=== PATIENT | female | born 1935 | race Caucasian/White ===

== ENCOUNTER 2018-05-10 11:18 | Observation (INO) | payer OTHER, MEDICARE ==
--- OUTSIDE RECORDS SUMMARY | 2018-05-10 11:20 | XMS REPORT ---
:1935 Author Organization eClinicalWorks Care Team Providers Name Role Phone Paulina Zimmer Provider Role Unavailable Allergies No Known Allergies Problems Problem Type Condition Code Onset Dates Condition Status Problem Hyperthyroidism E05.90 Active Problem Hx of breast cancer Z85.3 Active Problem HTN (hypertension) I10 Active Problem Essential hypertension I10 Active Problem Vitamin D deficiency E55.9 Active Problem History of hyperthyroidism Z86.39 Active Problem Seasonal allergic rhinitis due to J30.1 Active pollen Medications No Known Medications Results No Known Results Summary Purpose eClinicalWorks Submission
--- OUTSIDE RECORDS SUMMARY | 2018-05-10 11:20 | XMS REPORT ---
:1935 Author Organization eClinicalWorks Care Team Providers Name Role Phone Paulina Zimmer Provider Role Unavailable Allergies No Known Allergies Problems Problem Type Condition Code Onset Dates Condition Status Problem Vitamin D deficiency E55.9 Active Problem Seasonal allergic rhinitis due to J30.1 Active pollen Problem Essential hypertension I10 Active Problem Change in bowel habit R19.4 Active Problem C. difficile diarrhea A04.72 Active Problem Abnormal weight loss R63.4 Active Problem Hx of breast cancer Z85.3 Active Problem History of hyperthyroidism Z86.39 Active Problem HTN (hypertension) I10 Active Problem Hyperthyroidism E05.90 Active Medications No Known Medications Results No Known Results Summary Purpose eClinicalWorks Submission
--- OUTSIDE RECORDS SUMMARY | 2018-05-10 11:20 | XMS REPORT ---
[...] rhinitis due to J30.1 Active pollen Medications Medication Code Code Instructions Start End Status Dosage System Date Date Vancomycin HCl [facility] 19860616999 125 MG Orally March 31, April 10, Active 1 capsule every 6 hrs 2017 2017 Results No Known Results Summary Purpose eClinicalWorks Submission
--- OUTSIDE RECORDS SUMMARY | 2018-05-10 11:21 | XMS REPORT ---
:1935 Author Organization eClinicalWorks Care Team Providers Name Role Phone Paulina Zimmer Provider Role Unavailable Allergies, Adverse Reactions, Alerts Substance Reaction Event Type ANGIOTENSION RENIN AGL Info Not Available Drug Allergy Sulfa rash Drug Allergy Problems Problem Type Condition Code Onset Dates [...] (hypertension) I10 Active Problem Hyperthyroidism E05.90 Active Assessment Hematuria, unspecified R31.9 Active Assessment Abnormal weight loss R63.4 Active Assessment Change in bowel habit R19.4 Active Assessment Positive fecal occult blood test R19.5 Active Assessment Diarrhea, unspecified type R19.7 Active Medications Medication Code Code Instructions Start End Status Dosage System Date Date Tasiazaki [facility] 08533220715 50 MG Orally Active 1 tablet Once a day Vitamin D3 [facility] 03018792413 5000 UNIT Orally Active 1 capsule Ultra Strength Once a day Centrum Silver [facility] 49945993404 - Orally Active not defined Results No Known Results Summary Purpose eClinicalWorks Submission
--- OUTSIDE RECORDS SUMMARY | 2018-05-10 11:21 | XMS REPORT ---
:1935 Author Organization eClinicalWorks Care Team Providers Name Role Phone Paulina Zimmer Provider Role Unavailable Allergies, Adverse Reactions, Alerts Substance Reaction Event Type ANGIOTENSION RENIN GAL Info Not Available Drug Allergy Sulfa rash [...] I10 Active Problem Hyperthyroidism E05.90 Active Assessment Abnormal weight loss R63.4 Active Assessment Change in bowel habit R19.4 Active Assessment C. difficile diarrhea A04.72 Active Medications Medication Code Code Instructions Start End Status Dosage System Date Date Vitamin D3 [facility] 04322572184 5000 UNIT Orally Active 1 capsule Ultra Strength Once a day Cozaar [facility] 69136873224 50 MG Orally Active 1 tablet Once a day Centrum Silver [facility] 31795368480 - Orally Active not defined Results No Known Results Summary Purpose eClinicalWorks Submission
[2018-05-10 14:18] LABS: Potassium 3.3 mEq/L (3.6-5.0)
[2018-05-10 14:19] LABS: Absolute Lymphocytes (CBC) 1.4 K/uL (0.7-4.9); Absolute Monocytes 0.6 K/uL (0.1-1.3); Absolute Neutrophil 4.6 K/uL (1.8-8.0); Basophils % 1.2 % (0-1.3); Eosinophils % 0.5 % (0-4.4); Hematocrit 37.2 % (36.0-45.0); MCH 29.6 pg (27.0-35.0); MCV 90.8 fL (80-100); MPV 11.3 fL (7.6-11.3); Monocytes % 8.6 % (3.3-12.3); RBC Red Blood Cell Count 4.09 M/uL (3.86-4.86)
[2018-05-10 14:24] LABS: Bilirubin Direct 0.1 mg/dL (0-0.2); Bilirubin Total 0.7 mg/dL (0.3-1.2); Magnesium 1.8 mg/dL (1.8-2.5); Protein, Total 6.9 g/dL (6.0-8.3)
[2018-05-10 14:27] LABS: CKMB Creatine Kinase MB 2.9 ng/ml (0.3-4.0)
[2018-05-10 14:50] LABS: Protime INR 1.15
[2018-05-10 15:14] LABS: Urine Blood 1+ (NEG); Urine Glucose NEGATIVE (NEG); Urine Protein 2+ (NEG); Urine Specific Gravity 1.025 (1.005-1.030); Urine pH 6.5 (5.0-7.0)
--- NOTE | 2018-05-10 15:16 | RAD REPORT ---
EXAM DESCRIPTION: RAD - Chest Single View - 05/10/2018 2:20 pm CLINICAL HISTORY: Cough, swelling, shortness of breath COMPARISON: None. TECHNIQUE: AP portable chest image was obtained 1406 hours . FINDINGS: Interstitial markings are prominent throughout the lung scott. This is probably a baselin e fibrosis. As the initial examination superimposed interstitial edema or infiltrate cannot be exclud ed. Patient has small to moderate left pleural effusion with probable atelectasis and/ or infiltrate. Minimal right pleural effusion with atelectasis seen. Upper lobe vasculature within normal limits. H eart is not enlarged. Trachea is midline. No pneumothorax. No acute bone finding. Patient has promine nt degenerative tendon or joint calcifications at each shoulder. No acute aortic findings suspected. IMPRESSION: Left greater than right pleural effusion with lung base infiltrate and/ or atelectasis. Bilateral interstitial lung disease is present. This could mask a component of interstitial edema or infiltrate as a baseline study.
[2018-05-10] MEDS ORDERED: POTASSIUM CL SA 10 MEQ TAB PO ONE (15:26)
[2018-05-10] MEDS ORDERED: CEFTRIAXONE/SWI 1gm 1 GM/10 ML SYR ONE (15:26)
--- NOTE | 2018-05-10 15:30 | RAD REPORT ---
EXAM DESCRIPTION: CT - Chest For Pe Angio - 05/10/2018 3:13 pm CLINICAL HISTORY: Cough, shortness of breath, prior hysterectomy, prior left mastectomy COMPARISON: Chest films same date TECHNIQUE: Dynamically enhanced 3 mm thick images of the chest were obtained during administration o f approximately 150mL Isovue 370 IV contrast. Coronal and oblique reconstruction images were generate d and reviewed. Exam utilizes a protocol to evaluate the pulmonary arterial tree. All CT scans are performed using dose optimization technique as appropriate and may include automated exposure control or mA/KV adjustment according to patient size. FINDINGS: No pulmonary emboli are identified. Aortic assessment is limited due to the PE protocol. No aortic aneurysm or displaced calcification. A cute aortic finding is not suspected. No pericardial thickening or effusion. Patient has large bilateral pleural effusions. There is partial atelectasis of each lower lobe. Patie nt has interstitial opacification that is probably chronic interstitial lung disease. Focal parenchym al opacification in the anterior left lung field at the aortic arch level is probably scarring from r adiation therapy. Bilateral breast implants are in place. No infiltrate or acute lung parenchymal process. No endobronchial lesion. No pneumothorax or pleural based mass. No mediastinal or hilar suspicious masses. No chest wall masses or abnormal axillary lymphadenopathy. IMPRESSION: No pulmonary emboli identified. Large bilateral pleural effusions with partial atelectasis of each lower lobe. Chronic interstitial lung disease is evident. An acute pneumonia is not confirmed.
[2018-05-10 15:44] LABS: Blood Morphology Comment NOT SEEN (NOT SEEN); Platelet Estimate ADEQ; Urine White Blood Cell Casts OK
--- NOTE | 2018-05-10 15:56 | RAD REPORT ---
EXAM DESCRIPTION: VAS - Extrem Venous W Compress David - 05/10/2018 3:38 pm CLINICAL HISTORY: Leg pain and swelling COMPARISON: None. TECHNIQUE: Real-time sonographic evaluation of the bilateral lower extremity deep venous systems was performed. FINDINGS: Normal compressibility, flow augmentation, phasic flow and spontaneous flow are identified in the left and right lower extremity deep venous systems. No intraluminal filling defects seen. IMPRESSION: No DVT in either lower extremity.
--- NOTE | 2018-05-10 16:04 | ER ---
Nurse's Notes [facility] Name: Alecia Dorantes Age: 83 yrs Sex: Female : 1935 Arrival Date: 05/10/2018 Time: 11:22 Bed 28 Private MD: Paulina Zimmer Diagnosis: Pleural effusion in conditions classified elsewhere-large bilateral ;Dyspnea;Hypokalemia;Cystitis Presentation: 05/10 11:30 Presenting complaint: Patient states: Bilateral lower leg swelling, nonproductive hb cough, and SOB x 5 days. SOB is worse when supine. Denies fever. Transition of care: patient was not received from another setting of care. Onset of symptoms was May 05, 2018. Risk Assessment: Do you want to hurt yourself or someone else? Patient reports no desire to harm self or others. Initial Sepsis Screen: Does the patient meet any 2 criteria? No. Patient's initial sepsis screen is negative. Does the patient have a suspected source of infection? No. Patient's initial sepsis screen is negative. Care prior to arrival: None. 11:30 Method Of Arrival: Ambulatory 11:30 Acuity: BARBARA 3 hb Triage Assessment: 16:41 General: Appears uncomfortable, well groomed, Behavior is calm, cooperative, mb3 appropriate for age. Respiratory: Reports shortness of breath Onset: The symptoms/episode began/occurred started 5 days ago, the patient has severe shortness of breath. Historical: - Allergies: 11:34 Sulfa (Sulfonamide Antibiotics) (Hives); hb - Home Meds: 11:34 lisinopril 20 mg Oral tab 1 tab once daily [Active]; hb - PMHx: 11:34 Hypertension; Breast CA; hb - PSHx: 11:34 Hysterectomy; mastectomy - left; hb - Immunization history:: Adult Immunizations up to date. - Social history:: Smoking status: Patient/guardian denies using tobacco. - Ebola Screening: : No symptoms or risks identified at this time. Screenin:19 Abuse screen: Denies threats or abuse. Denies injuries from another. Nutritional sg screening: No deficits noted. Tuberculosis screening: No symptoms or risk factors identified. Never had TB. Fall Risk None identified. Assessment: 13:16 General: Appears in no apparent distress. comfortable, slender, well groomed, well sg developed, well nourished, Behavior is calm, cooperative, appropriate for age. Pain: Denies pain. Neuro: Level of Consciousness is awake, alert, obeys commands, Oriented to person, place, time, situation, Charge Preparation Technician are equal bilaterally Moves all extremities. Gait is steady, Speech is normal, Facial symmetry appears normal, Pupils are PERRLA. Cardiovascular: Heart tones S1 S2 present Capillary refill is brisk in bilateral fingers Patient's skin is warm and dry. Chest pain is denied. Cardiovascular: Denies chest pain, fatigue, nausea, palpitations, shortness of breath, Rhythm is sinus tachycardia. Cardiovascular: Pulses are palpable in right radial artery, right posterior tibial artery, left radial artery and left posterior tibial artery Edema is 1+ to left ankle, left foot, left toes, right ankle, right foot and right toes. Respiratory: Airway is patent Respiratory effort is even, unlabored, Breath sounds with crackles in left posterior lower lobe and right posterior middle lobe. GI: No signs and/or symptoms were reported involving the gastrointestinal system. : No signs and/or symptoms were reported regarding the genitourinary system. EENT: No signs and/or symptoms were reported regarding the EENT system. Derm: Skin is pink, warm \T\ dry. Musculoskeletal: Circulation, motion, and sensation intact. Range of motion: intact in all extremities, Swelling present in right caraballo, dorsum of right foot, left caraballo and dorsum of left foot. Vital Signs: 11:31 BP 123 / 99; Pulse 102; Resp 18; Temp 97.1; Pulse Ox 98% on R/A; Weight 58.97 kg; hb Height 5 ft. 7 in. (170.18 cm); Pain 0/10; 13:15 BP 152 / 90; Pulse 108; Resp 18 S; Pulse Ox 97% on R/A; Pain 0/10; sg 16:22 BP 161 / 80; Pulse 114; Resp 22; Pulse Ox 98% on R/A; mb3 11:31 Body Mass Index 20.36 (58.97 kg, 170.18 cm) hb ED Course: 11:22 Patient arrived in ED. sb2 11:22 Paulina Zimmer MD is Private Physician. sb2 11:31 Triage completed. hb 11:34 Arm band placed on right wrist. hb 13:08 Daniel Dennison, RN is Primary Nurse. sg 13:13 Galindo Staley MD is Attending Physician. emily 13:15 EKG done. Patient maintains SpO2 saturation greater than 95% on room air. sg 13:45 Initial lab(s) drawn, by me, sent to lab. First set of blood cultures drawn by me. sg Inserted saline lock: 20 gauge in right forearm, using aseptic technique. Blood collected. 13:45 Missed attempt(s): 22 gauge in right forearm. Bleeding controlled, band aid applied, sg catheter tip intact. 14:19 X-ray completed. Portable x-ray completed in exam room. Patient tolerated procedure ml well. 14:20 XRAY Chest (1 view) In Process Unspecified. EDMS 15:[address] nj 15:11 CT completed. Patient tolerated procedure well. Patient moved back from CT. tx 15:13 CT Chest For PE Angio In Process Unspecified. EDMS 15:17 Patient taken to ultrasound. via wheelchair. hr 15:21 US Extremity Venous W Compression David In Process Unspecified. EDMS 15:21 Edward Paula, HOLLAND is Primary Nurse. [facility] 15:52 Ultrasound completed. Patient tolerated well. Note: . Patient moved back from hr ultrasound. 16:02 Genny Mayer MD is Hospitalizing Provider. [facility] 16:03 Hospitalizing Provider role handed off by Genny Mayer MD [facility] 16:03 Camille Jenkins MD is Hospitalizing Provider. [facility] 16:22 Patient has correct armband on for positive identification. Bed in low position. Call mb3 light in reach. Side rails up X 1. radiation monitor on. Pulse ox on. NIBP on. 16:42 No provider procedures requiring assistance completed. Patient admitted, IV remains in mb3 place. Administered Medications: 16:00 Drug: Potassium Chloride 20 mEq Route: PO; mb3 16:45 Follow up: Response: No adverse reaction mb3 16:00 Drug: Rocephin - (cefTRIAXone) 1 grams Route: IVPB; Infused Over: 30 mins; Site: right mb3 forearm; 16:44 Follow up: Response: No adverse reaction; IV Status: Completed infusion; IV Intake: [id number] 16:40 Drug: Lasix 40 mg Route: IVP; Site: right forearm; mb3 16:44 Follow up: Response: No adverse reaction mb3 Intake: 16:44 IV: 50ml; Total: 50ml. mb3 Outcome: 16:04 Decision to Hospitalize by Provider. emily 16:42 Admitted to Tele accompanied by tech, via wheelchair, room 410, with chart, Report mb3 called to Shilpi RN \T\163 16:42 Condition: stable 16:42 Instructed on the need for admit. 16:59 Patient left the ED. mb3 Signatures: Dispatcher [employer] EDMS Daniel Dennison, RN RN Galindo Lebron MD MD cha Rod, Haley hr Lopez, Melissa ml Baxter, Heather, RN Brijesh Wilson Sheri sb2 Edward Paula RN RN mb3
--- NOTE | 2018-05-10 16:05 | EDPHYS ---
Physician Documentation [facility] Name: Alecia Dorantes Age: 83 yrs Sex: Female : 1935 Arrival Date: 05/10/2018 Time: 11:22 Bed 28 Private MD: Paulina Zimmer ED Physician Galindo Staley HPI: 05/10 13:48 This 83 yrs old Female presents to ER via Ambulatory with complaints of emily Breathing Difficulty. 13:48 The patient has shortness of breath at rest, with light activity. Onset: The emily symptoms/episode began/occurred 3 day(s) ago. Duration: The symptoms are continuous, and are steadily getting worse. The patient's shortness of breath is aggravated by coughing. Associated signs and symptoms: Pertinent positives: non-productive cough. Severity of symptoms: At their worst the symptoms were moderate in the emergency department the symptoms have improved mildly. The patient has not experienced similar symptoms in the past. Historical: - Allergies: 11:34 Sulfa (Sulfonamide Antibiotics) (Hives); hb - Home Meds: 11:34 lisinopril 20 mg Oral tab 1 tab once daily [Active]; hb - PMHx: 11:34 Hypertension; Breast CA; hb - PSHx: 11:34 Hysterectomy; mastectomy - left; hb - Immunization history:: Adult Immunizations up to date. - Social history:: Smoking status: Patient/guardian denies using tobacco. - Ebola Screening: : No symptoms or risks identified at this time. ROS: 13:50 Constitutional: Negative for fever, chills, and weight loss, Eyes: Negative for injury, emily pain, redness, and discharge, ENT: Negative for injury, pain, and discharge, Neck: Negative for injury, pain, and swelling, Cardiovascular: Negative for chest pain, palpitations, and edema, Abdomen/GI: Negative for abdominal pain, nausea, vomiting, diarrhea, and constipation, Back: Negative for injury and pain, : Negative for injury, bleeding, discharge, and swelling, Skin: Negative for injury, rash, and discoloration, Neuro: Negative for headache, weakness, numbness, tingling, and seizure, Psych: Negative for depression, anxiety, suicide ideation, homicidal ideation, and hallucinations, Allergy/Immunology: Negative for hives, rash, and allergies, Endocrine: Negative for neck swelling, polydipsia, polyuria, polyphagia, and marked weight changes, Hematologic/Lymphatic: Negative for swollen nodes, abnormal bleeding, and unusual bruising. 13:50 Respiratory: Positive for orthopnea, shortness of breath, at rest. 13:50 MS/extremity: Positive for swelling. Exam: 13:50 Constitutional: This is a well developed, well nourished patient who is awake, alert, emily and in no acute distress. Head/Face: Normocephalic, atraumatic. Eyes: Pupils equal round and reactive to light, extra-ocular motions intact. Lids and lashes normal. Conjunctiva and sclera are non-icteric and not injected. Cornea within normal limits. Periorbital areas with no swelling, redness, or edema. ENT: Nares patent. No nasal discharge, no septal abnormalities noted. Tympanic membranes are normal and external auditory canals are clear. Oropharynx with no redness, swelling, or masses, exudates, or evidence of obstruction, uvula midline. Mucous membranes moist. Neck: Trachea midline, no thyromegaly or masses palpated, and no cervical lymphadenopathy. Supple, full range of motion without nuchal rigidity, or vertebral point tenderness. No Meningismus. Chest/axilla: Normal chest wall appearance and motion. Nontender with no deformity. No lesions are appreciated. Cardiovascular: Regular rate and rhythm with a normal S1 and S2. No gallops, murmurs, or rubs. Normal PMI, no JVD. No pulse deficits. Respiratory: Lungs have equal breath sounds bilaterally, clear to auscultation and percussion. No rales, rhonchi or wheezes noted. No increased work of breathing, no retractions or nasal flaring. Abdomen/GI: Soft, non-tender, with normal bowel sounds. No distension or tympany. No guarding or rebound. No evidence of tenderness throughout. Back: No spinal tenderness. No costovertebral tenderness. Full range of motion. Female : Normal external genitalia. Skin: Warm, dry with normal turgor. Normal color with no rashes, no lesions, and no evidence of cellulitis. Neuro: Awake and alert, GCS 15, oriented to person, place, time, and situation. Cranial nerves II-XII grossly intact. Motor strength 5/5 in all extremities. Sensory grossly intact. Cerebellar exam normal. Normal gait. Psych: Awake, alert, with orientation to person, place and time. Behavior, mood, and affect are within normal limits. 13:50 Musculoskeletal/extremity: Extremities: noted in the right leg and left leg: swelling. Vital Signs: 11:31 BP 123 / 99; Pulse 102; Resp 18; Temp 97.1; Pulse Ox 98% on R/A; Weight 58.97 kg; hb Height 5 ft. 7 in. (170.18 cm); Pain 0/10; 13:15 BP 152 / 90; Pulse 108; Resp 18 S; Pulse Ox 97% on R/A; Pain 0/10; sg 16:22 BP 161 / 80; Pulse 114; Resp 22; Pulse Ox 98% on R/A; mb3 11:31 Body Mass Index 20.36 (58.97 kg, 170.18 cm) hb MDM: 13:13 Patient medically screened. [facility] 13:51 Data reviewed: vital signs, nurses notes, lab test result(s), EKG, radiologic studies, emily plain films. 05/10 13:47 Order name: Basic Metabolic Panel [facility] 05/10 13:47 Order name: BNP; Complete Time: 15:47 [facility] 05/10 13:47 Order name: CBC with Diff; Complete Time: 15:47 [facility] 05/10 13:47 Order name: Ckmb; Complete Time: 14:57 [facility] 05/10 13:47 Order name: CPK; Complete Time: 14:57 [facility] 05/10 13:47 Order name: LFT's; Complete Time: 14:57 [facility] 05/10 13:47 Order name: Magnesium; Complete Time: 14:57 [facility] 05/10 13:47 Order name: PT-INR; Complete Time: 14:57 [facility] 05/10 13:47 Order name: Ptt, Activated; Complete Time: 14:57 [facility] 05/10 13:47 Order name: Troponin (emerg Dept Use Only); Complete Time: 14:57 [facility] 05/10 13:47 Order name: Lipase; Complete Time: 14:57 [facility] 05/10 13:47 Order name: Blood Culture Adult (2) [facility] 05/10 13:47 Order name: D-Dimer; Complete Time: 14:57 [facility] 05/10 13:48 Order name: Basic Metabolic Panel; Complete Time: 14:57 [facility] 05/10 13:47 Order name: XRAY Chest (1 view); Complete Time: 15:47 [facility] 05/10 13:47 Order name: EKG; Complete Time: 13:48 [facility] 05/10 13:47 Order name: Cardiac monitoring; Complete Time: 13:52 [facility] 05/10 13:47 Order name: EKG - Nurse/Tech; Complete Time: 13:52 [facility] 05/10 13:47 Order name: IV Saline Lock; Complete Time: 13:52 [facility] 05/10 13:47 Order name: Echo w/ Doppler [facility] 05/10 14:23 Order name: CBC Smear Scan; Complete Time: 15:47 [facility] 05/10 14:59 Order name: US Extremity Venous W Compression David; Complete Time: 16:00 [facility] 05/10 14:59 Order name: CT Chest For PE Angio; Complete Time: 15:47 [facility] 05/10 15:01 Order name: Urine Dipstick--Ancillary (enter results); Complete Time: 15:47 05/10 15:09 Order name: Urine Culture [facility] 05/10 16:07 Order name: CONS Physician Consult [facility] 05/10 16:08 Order name: CONS Physician Consult [facility] 05/10 13:47 Order name: Labs collected and sent; Complete Time: 13:52 [facility] 05/10 13:47 Order name: O2 Per Protocol; Complete Time: 13:52 [facility] 05/10 13:47 Order name: O2 Sat Monitoring; Complete Time: 13:52 [facility] Administered Medications: 16:00 Drug: Potassium Chloride 20 mEq Route: PO; mb3 16:45 Follow up: Response: No adverse reaction mb3 16:00 Drug: Rocephin - (cefTRIAXone) 1 grams Route: IVPB; Infused Over: 30 mins; Site: right mb3 forearm; 16:44 Follow up: Response: No adverse reaction; IV Status: Completed infusion; IV Intake: [id number] 16:40 Drug: Lasix 40 mg Route: IVP; Site: right forearm; mb3 16:44 Follow up: Response: No adverse reaction mb3 Disposition: 05/10/18 16:04 Hospitalization ordered by Camille Jenkins for Inpatient Admission. Preliminary diagnosis are Pleural effusion in conditions classified elsewhere - large bilateral , Dyspnea, Hypokalemia, Cystitis. - Bed requested for Telemetry/MedSurg (Inpatient). - Status is Inpatient Admission. mb3 - Condition is Fair. - Problem is new. - Symptoms have improved. UTI on Admission? Yes Signatures: Dispatcher [employer] EDMS Galindo Staley MD MD cha Smirch, Shelby RN RN Elena Carrion, HOLLAND LINO Edward Paula RN RN mb3 Corrections: (The following items were deleted from the chart) 16:21 16:04 Hospitalization Ordered by Camille Jenkins MD for Inpatient Admission. Preliminary ss diagnosis is Pleural effusion in conditions classified elsewhere - large bilateral ; Dyspnea; Hypokalemia; Cystitis. Bed requested for Telemetry/MedSurg (Inpatient). Status is Inpatient Admission. Condition is Fair. Problem is new. Symptoms have improved. UTI on Admission? Yes. [facility] 16:59 16:21 05/10/2018 16:04 Hospitalization Ordered by Camille Jenkins MD for Inpatient mb3 Admission. Preliminary diagnosis is Pleural effusion in conditions classified elsewhere - large bilateral ; Dyspnea; Hypokalemia; Cystitis. Bed requested for Telemetry/MedSurg (Inpatient). Status is Inpatient Admission. Condition is Fair. Problem is new. Symptoms have improved. UTI on Admission? Yes. ss
--- NOTE | 2018-05-10 16:08 | EKG ---
Test Date: 2018-05-10 Test Time: 13:35:23 Rotary Cutter Feeder: HAYLEY MEASUREMENT RESULTS: Intervals: Rate: 106 VA: 146 QRSD: 108 QT: 358 QTc: 475 [place]: P: 68 VA: 146 QRS: 59 T: 150 INTERPRETIVE STATEMENTS: Sinus tachycardia with frequent premature ventricular complexes Nonspecific T wave abnormality Abnormal ECG No previous ECG available for comparison Electronically Signed On 05-10-18 16:07:51 CDT by Js Ramirez
[2018-05-10] MEDS ORDERED: FUROSEMIDE 40 MG/4 ML VIAL ONE (16:30)
[2018-05-10] MEDS ORDERED: ALBUTEROL 2.5 MG/3 ML NEB SOL NEB PRN (16:42)
[2018-05-10] MEDS ORDERED: IPRATROPIUM BROM 0.5MG/2.5ML NEB PRN (16:42)
[2018-05-10] MEDS ORDERED: ONDANSETRON 4 MG/2 ML VIAL IV PRN (16:42)
[2018-05-10] MEDS ORDERED: ACETAMINOPHEN 500 MG TAB PO PRN (16:42)
[2018-05-10] MEDS ORDERED: ENOXAPARIN 40 MG/0.4 ML SQ SCH (17:00)
[2018-05-10] MEDS ORDERED: FUROSEMIDE 20 MG/ 2ML VIAL IV SCH (17:00)
--- NOTE | 2018-05-10 17:47 | P.HP ---
Certification for Inpatient Patient admitted to: Inpatient With expected LOS: >2 Midnights Patient will require the following post-hospital care: None Practitioner: I am a practitioner with admitting privileges, knowledge of patient current condition, hospital course, and medical plan of care. Services: Services provided to patient in accordance with Admission requirements found in Title 42 Section 412.3 of the Code of Federal Regulations <Johan Fonseca - Last Filed: 05/10/18 17:42> Patient History Date of Service: 05/10/18 Primary Care Provider: Dr. Paulina Zimmer Reason for admission: Shortness of breath History of Present Illness: This is an 83-year-old female patient who was presented to the ED for having shortness of breath for the last several days. Patient stated that is gotten to the point now where she cannot lay flat any longer. Denies fevers. Has had a dry nonproductive cough for several weeks. Denies recent chest pain. Only notable history is hypertension which she is compliant with her medication. History of breast cancer in the past with a mastectomy about 20 years ago. Remains in remission. During breast cancer treatment therapy patient was known to have a pleural effusion that needed pleurocentesis in the past. Upon further workup in the emergency room patient was found to have bilateral large pleural effusions of unknown origin. Patient remains mildly tachycardic. Currently is not requiring oxygen supplementation and is hemodynamically stable. Home medications list reviewed: Yes - Past Medical/Surgical History Has patient received pneumonia vaccine in the past: Yes Diabetic: No -: High blood pressure -: Hysterectomy - Family History Family History: Reviewed- Non-Contributory - Social History Smoking Status: Never smoker Smoking therapy provided: No Alcohol use: No CD- Drugs: No Caffeine use: Yes Place of Residence: Home <Johan Fonseca - Last Filed: 05/10/18 17:42> Date of Service: 05/11/18 <Camille Jenkins - Last Filed: 05/11/18 16:08> Allergies Sulfa (Sulfonamide Antibiotics) Allergy (Verified 05/10/18 16:37) Itching Home Medications: Aspirin [Aspirin EC 81 MG] 81 mg PO DAILY #90 tablet. 05/11/18 Carvedilol [Coreg] 3.125 mg PO BID #60 tab 05/11/18 Furosemide [Lasix] 40 mg PO DAILY #30 tab 05/11/18 Losartan Potassium [Cozaar*] 25 mg PO DAILY #30 tablet 05/11/18 Review of Systems General: Unremarkable Eyes: Unremarkable ENT: Unremarkable Respiratory: Cough, Dry, Shortness of Breath, SOB with Excertion, Other ( Orthopnea) Cardiovascular: Orthopnea Gastrointestinal: Unremarkable Genitourinary: Unremarkable Musculoskeletal: Unremarkable Integumentary: Unremarkable Neurological: Unremarkable Lymphatics: Unremarkable <Johan Fonseca - Last Filed: 05/10/18 17:42> Physical Examination - Vital Signs Temperature: 98.4 F Blood Pressure: 144/70 Pulse: 107 Respirations: 18 Pulse Ox (%): 100 - Physical Exam General: Alert, In no apparent distress, Oriented x3, Cooperative HEENT: Normocephalic, PERRLA, Mucous membr. moist/pink Neck: Supple, 2+ carotid pulse no bruit, JVD not distended, No Thyromegaly Respiratory: Diminished (Lower lobes) Cardiovascular: No edema, Normal pulses, Regular rate/rhythm, Normal S1 S2, No gallops, No rubs, No murmurs Capillary refill: <2 Seconds Gastrointestinal: Normal bowel sounds, Hypoactive, Soft and benign, Non- distended, No tenderness Musculoskeletal: No clubbing, No swelling, No contractures, No erythema, No tenderness, No warmth Integumentary: No rashes, No breakdown, No significant lesion, No tenderness/ swelling, No erythema, No warmth, No cyanosis Neurological: Normal gait, Normal speech, Normal strength at 5/5 x4 extr, Normal tone, Sensation intact, Cranial nerves 3-12 intact, Normal reflexes 2+, Normal affect - Studies Laboratory Data (last 24 hrs) 05/10/18 13:45: PT 13.6 H, INR 1.15, APTT 26.1 05/10/18 13:45: WBC 6.7, Hgb 12.1, Hct 37.2, Plt Count 190 05/10/18 13:45: B-Natriuretic Peptide 1232 H 05/10/18 13:45: Sodium 134 L, Potassium 3.3 L, BUN 13, Creatinine 0.65, Glucose 114, Magnesium 1.8, Total Bilirubin 0.7, AST 36, ALT 51, Alkaline Phosphatase 74 , Lipase 22 <Johan Fonseca - Last Filed: 05/10/18 17:42> Assessment and Plan - Problems (Diagnosis) (1) Pleural effusion Status: Acute (2) Congestive heart failure Status: Suspected Qualifiers: Heart failure type: systolic Heart failure chronicity: acute Qualified Code(s): I50.21 - Acute systolic (congestive) heart failure (3) Tachycardia Status: Acute (4) Shortness of breath Status: Acute (5) Hypertension Status: Chronic Qualifiers: Hypertension type: essential hypertension Qualified Code(s): I10 - Essential (primary) hypertension - Plan 1. Patient will be on continuous pulse ox and have vitals monitored throughout her stay 2. Cardiology will be consulted and echocardiogram will be completed to further assess this patient has congestive heart failure which is contributing to pleural effusions 3. Pulmonology will be consulted for the bilateral pleural effusions to assess whether or not a pleurocentesis is indicated or diurese for now 4. We will continue blood pressure medicine and adjust as needed Discharge Plan: Home Plan to discharge in: Greater than 2 days - Advance Directives Does patient have a Living Will: Yes Does patient have a Durable POA for Healthcare: Yes - Code Status/Comfort Care Code Status Assessed: Yes Code Status: Full Code <Johan Fonseca - Last Filed: 05/10/18 17:42> - Plan Patient seen and examined. Agree with A&P. <Camille Jenkins - Last Filed: 05/11/18 16:08>
--- NOTE | 2018-05-10 18:47 | ECHO ---
HEIGHT: 5 ft 5 in WEIGHT: 120 lb 0 oz DATE OF STUDY: 05/10/[address]: Galindo Staley MD 2-DIMENSIONAL: YES M.MODE: YES DOPPLER: YES COLOR FLOW: YES TDS: YES PORTABLE: NO DEFINITY: NO BUBBLE STUDY: NO DIAGNOSIS: SHORTNESS OF BREATH CARDIAC HISTORY: CATHERIZATION: NO SURGERY: NO PROSTHETIC VALVE: NO PACEMAKER: NO MEASUREMENTS (cm) DIASTOLIC (NORMALS) SYSTOLIC (NORMALS) IVSd 0.9 (0.6-1.2) LA Diam 3.5 (1.9-4.0) LVEF 37% LVIDd 4.8 (3.5-5.7) LVIDs 4.0 (2.0-3.5) %FS 18% LVPWd 0.9 (0.6-1.2) Ao Diam 2.4 (2.0-3.7) 2 DIMENSIONAL ASSESSMENT: RIGHT ATRIUM: DILATED LEFT ATRIUM: DILATED RIGHT VENTRICLE: NORMAL LEFT VENTRICLE: NORMAL TRICUSPID VALVE: NORMAL MITRAL VALVE: NORMAL PULMONIC VALVE: NORMAL AORTIC VALVE: NORMAL PERICARDIAL EFFUSION: NONE AORTIC ROOT: NORMAL LEFT VENTRICULAR WALL MOTION: NORMAL DOPPLER/COLOR FLOW: MILD MITRAL REGURGITATION COMMENTS: DEPRESSED LEFT VENTRICULAR EJECTION FRACTION. DILATED LEFT ATRIUM AND RIGHT ATRIUM. MILD MITRAL REGURGITATION. TECHNOLOGIST: MAVIS GARCIA
[2018-05-11 04:05] LABS: Absolute Lymphocytes (CBC) 1.5 K/uL (0.7-4.9); Absolute Monocytes 0.7 K/uL (0.1-1.3); Absolute Neutrophil 4.1 K/uL (1.8-8.0); Basophils % 1.2 % (0-1.3); Eosinophils % 1.5 % (0-4.4); Hematocrit 37.4 % (36.0-45.0); Lymphocytes % 22.8 % (15.3-44.8); Monocytes % 10.6 % (3.3-12.3); RBC Red Blood Cell Count 4.16 M/uL (3.86-4.86)
[2018-05-11 05:00] LABS: Potassium 3.5 mEq/L (3.6-5.0); Thyroid Stimulating Hormone 4.15 uIU/mL (0.34-5.60)
--- NOTE | 2018-05-11 07:39 | CON ---
Date of Consultation: 05/11/2018 The patient was admitted to Dr. Canchola on 05/10/2018. I saw the patient 05/11/2018. Reason For Consultation: New onset congestive heart failure. History Of Present Illness: Mrs. Dorantes is an 83-year-old woman who has no significant past cardiac history. She has a history of hypertension, had chemotherapy and lots of radiation therapy for enoc st cancer approximately 20 years ago. Came in with shortness of breath, was found on chest x-ray to have bilateral pleural effusion and congestive heart failure. Echocardiogram which was done yesterda y showed an ejection fraction of 37%. Denied PND, orthopnea. Has had pedal edema. Denied chest puja n. Denied palpitation or syncope. Denied any fever or chills. Allergies: INCLUDE SULFA. Medications: At home include losartan. Review of Systems: Negative. Social History: Negative. Family History: Negative. Physical Examination: General: Mrs. Dorantes is an 83, very alert and oriented, seem to be very aware of her issues. No ac [place] distress. Vital Signs: She was in a sinus rhythm, afebrile. HEENT: Negative. Neck: Supple without any lymphadenopathy, JVD, or thyromegaly, or bruit. Chest: Clear to auscultation and percussion today. Cardiac: Revealed a regular rhythm and rate with aortic sclerosis. No murmur, gallops or rubs. Abdomen: Benign. Extremities: Revealed no edema today. Diagnostic Data: Chest x-ray shows CHF with pleural effusion bilaterally. EKG shows sinus rhythm. Her D-dimer was [address] angiogram for pulmonary embolus. Her BNP was 1232. Her crea tinine is 0.65. Impression And Plan: 1.Acute systolic congestive heart failure. 2.Hypertension. 3.History of breast cancer status post chemotherapy and radiation therapy 20 years ago. 4.Elevated D-dimer and BNP secondary to congestive heart failure. Mrs. Dorantes is feeling great. She has diuresed significantly. She has no more edema, no more rales . I will feel comfortable with her going home. I think we need to continue the losartan, we need to start carvedilol, and keep on Lasix 40 mg daily as well as, I will watch her sodium intake at home a nd keep her sodium intake 3-5 g a day. She needs to watch her weight daily. From my standpoint, she can go home as mentioned earlier with losartan, carvedilol, Lasix and I will be happy to see her in the office in the next 2 weeks. I will make an arrangement for her to have an outpatient Lexiscan. JELENA/ROSMERY Voice ID: [id number] Report ID: [id number]
[2018-05-11 08:02] VITALS: BP 128/63; TEMP 97.6
[2018-05-11] MEDS ORDERED: CEFTRIAXONE/SWI 1gm 1 GM/10 ML SYR IVP SCH (09:00)
[2018-05-11] MEDS ORDERED: LOSARTAN POTASSIUM 50 MG TABLET PO SCH (09:00)
[2018-05-11] MEDS ORDERED: POTASSIUM CL SA 10 MEQ TAB PO ONE (09:00)
[2018-05-11] MEDS ORDERED: FUROSEMIDE 20 MG/ 2ML VIAL IV SCH (09:00)
--- NOTE | 2018-05-11 09:19 | RAD REPORT ---
EXAM DESCRIPTION: Sanket Lindsey And Sammy (2 Views)05/11/2018 8:25 am CLINICAL HISTORY: Cough COMPARISON: May 10 2018 FINDINGS: The pleural effusions appear mildly diminished when compared to the prior exam. Bibasilar atelectasis is seen. Mild interstitial lung opacities have partially resolved. The heart is normal size IMPRESSION: Mild decrease in the size of the pleural effusions is suspected. Partial resolution in bilateral interstitial lung opacities which probably represent interstitial pul monary edema
[2018-05-11 11:25] VITALS: O2SAT 98
--- NOTE | 2018-05-11 14:19 | P.DS ---
Admission Date: 05/10/18 Discharge Date: 05/11/18 Primary Care Provider: Dr. Paulina Zimmer Disposition: ROUTINE DISCHARGE Discharge Condition: GOOD Reason for Admission: Shortness of breath Consultations: Cardiology-Dr. Pringle Procedures: CT scan: Bilateral pleural effusions noted. Echocardiogram: Ejection fraction 37%. Venous Doppler: No DVT noted. - Problems (1) UTI (urinary tract infection) Status: Suspected Qualifiers: Urinary tract infection type: site unspecified Hematuria presence: without hematuria Qualified Code(s): N39.0 - Urinary tract infection, site not specified (2) Pleural effusion Onset Date: 05/11/18 Status: Acute (3) Shortness of breath Onset Date: 05/11/18 Status: Acute (4) Tachycardia Onset Date: 05/11/18 Status: Acute (5) Hypertension Onset Date: 05/11/18 Status: Chronic Qualifiers: Hypertension type: essential hypertension Qualified Code(s): I10 - Essential (primary) hypertension (6) Congestive heart failure Onset Date: 05/11/18 Status: Acute Qualifiers: Heart failure type: systolic Heart failure chronicity: acute Qualified Code(s): I50.21 - Acute systolic (congestive) heart failure (7) Hypokalemia Status: Acute (8) Hypomagnesemia Status: Acute Brief History of Present Illness: 83-year-old female present emergency room with shortness of breath, tachycardia and edema to the lower extremities. Patient was evaluated the emergency room. CT scan showed bilateral pleural effusions. No pneumonia noted. Patient was admitted for diuresis. Cardiology consulted. Hospital Course: Patient presented with shortness of breath. She was found to have bilateral pleural effusions. Venous Doppler of the lower extremity showed no DVT. Patient was evaluated by cardiology. ECHO showed systolic CHF with EF of 37%. Patient was diuresed during her stay. At discharge the edema resolved to the lower extremities. She was without any significant shortness of breath or tachycardia. At discharge patient will continue with a 1500 cc per day fluid restriction and low-salt diet. Patient will be started on Lasix 40 mg daily. New medication carvedilol 3.25 mg 1 pill twice daily also has been added. She will continue with losartan at a reduced dose of 25 mg daily. Medications can be adjusted by her PCP or cardiology. Patient is to monitor her weight daily. If her weight increases by more than 5 lb she is to contact her PCP or cardiology for further recommendation. CHF education will be provided. Recommendation is for the patient follow up with cardiology in 1-2 weeks to monitor progress. Cardiology will set up outpatient cardiac stress tests in the next 2-4 weeks. Patient has hypertension. Medications have been adjusted. She will continue with losartan at a reduced dose of 25 mg daily. Carvedilol 3.125 mg 1 pill twice daily has been added. Recommendation is to maintain blood pressures less 150/80. Further adjustment can be done by her PCP or cardiology. Patient may continue with aspirin 81 mg daily. Recommendation is to recheck lab-BMP, CBC and x-ray in 2-4 weeks to monitor her progress. She may have to limit her activities. Prior to discharge. Urine culture was growing Gram negative rods. Patient without any significant symptoms. This is likely asymptomatic. This can be followed up as an outpatient. Patient did not require any oxygen at discharge. This can be monitored closely by her PCP or cardiology. Vital Signs/Physical Exam: Temp Pulse Resp BP Pulse Ox 97.6 F 96 H 18 128/63 98 05/11/18 08:00 05/11/18 09:18 05/11/18 08:00 05/11/18 09:18 05/11/18 08:00 General: Alert, In no apparent distress, Oriented x3, Cooperative HEENT: Atraumatic, Mucous membr. moist/pink Neck: Supple Respiratory: Diminished (Slightly diminished to the bases. Improved aeration bilateral) Cardiovascular: Normal pulses, Regular rate/rhythm Gastrointestinal: Normal bowel sounds, Soft and benign, Non-distended, No tenderness, No masses, No rebound, No guarding Musculoskeletal: No contractures, No erythema, No tenderness, No warmth Integumentary: No tenderness/swelling, No erythema, No warmth, No cyanosis Neurological: Normal speech, Normal strength at 5/5 x4 extr, Normal tone, Normal affect Laboratory Data at Discharge: WBC 6.5 K/uL (4.3-10.9) 05/11/18 03:37 Hgb 12.5 g/dL (12.0-15.0) 05/11/18 03:37 Hct 37.4 % (36.0-45.0) 05/11/18 03:37 Plt Count 171 K/uL (152-406) 05/11/18 03:37 PT 13.6 SECONDS (9.5-12.5) H 05/10/18 13:45 INR 1.15 05/10/18 13:45 APTT 26.1 SECONDS (24.3-36.9) 05/10/18 13:45 Sodium 136 mEq/L (135-145) 05/11/18 03:37 Potassium 3.5 mEq/L (3.6-5.0) L 05/11/18 03:37 BUN 13 mg/dL (6-20) 05/11/18 03:37 Creatinine 0.87 mg/dL (0.44-1.00) 05/11/18 03:37 Glucose 112 mg/dL (65-120) 05/11/18 03:37 Magnesium 1.7 mg/dL (1.8-2.5) L 05/11/18 03:37 Total Bilirubin 0.7 mg/dL (0.3-1.2) 05/10/18 13:45 AST 36 IU/L (10-42) 05/10/18 13:45 ALT 51 IU/L (10-60) 05/10/18 13:45 Alkaline Phosphatase 74 IU/L (42-121) 05/10/18 13:45 Troponin I 0.03 ng/mL (<0.03) 05/10/18 20:27 B-Natriuretic Peptide 1568 pg/ml (<=100) H 05/11/18 03:37 Lipase 22 U/L (22-51) 05/10/18 13:45 Home Medications: Aspirin [Aspirin EC 81 MG] 81 mg PO DAILY #90 tablet. 05/11/18 Carvedilol [Coreg] 3.125 mg PO BID #60 tab 05/11/18 Furosemide [Lasix] 40 mg PO DAILY #30 tab 05/11/18 Losartan Potassium [Cozaar*] 25 mg PO DAILY #30 tablet 05/11/18 New Medications: Aspirin [Aspirin EC 81 MG] 81 mg PO DAILY #90 tablet. Carvedilol [Coreg] 3.125 mg PO BID #60 tab Furosemide [Lasix] 40 mg PO DAILY #30 tab Losartan Potassium [Cozaar*] 25 mg PO DAILY #30 tablet Patient Discharge Instructions: 1. Patient will need to follow up with her PCP in 1-2 weeks to follow u pthis hospitalization. 2. Patient presented with shortness of breath. She was found to have bilateral pleural effusions. ECHO showed systolic CHF with EF of 37%. Patient evaluated by Cardiology. Patient did well with diuresis. At discharge patient will continue with a 1500 cc per day fluid restriction and low-salt diet. Patient will be started on Lasix 40 mg daily. New medication carvedilol 3.25 mg 1 pill twice daily also has been added. She will continue with losartan at a reduced dose of 25 mg daily. Patient is to monitor her weight daily. If her weight increases by more than 5 lb she is to contact her PCP or cardiology for further recommendation. CHF education will be provided. Recommendation is for the patient follow up with cardiology in 1-2 weeks to monitor progress. Cardiology will set up outpatient cardiac stress tests in the next 2-4 weeks. 3. Patient has hypertension. Medications have been adjusted. She will continue with losartan at a reduced dose of 25 mg daily. Carvedilol 3.125 mg 1 pill twice daily has been added. Recommendation is to maintain blood pressures less 150/80. Further adjustment can be done by her PCP or cardiology. 4. Patient may continue with aspirin 81 mg daily. 5. Recommendation is to recheck lab-BMP, CBC and x-ray in 2-4 weeks to monitor her progress. 6. She may have to limit her activities. Diet: AHA Activity: Fall precautions Followup: Peewee Pringle MD [ACTIVE - CAN ADMIT] - (Follow up with Dr. Pringle in 2 weeks. Please call office to schedule appointment. ) Paulina Zimmer DO [Primary Care Provider] - 1-2 Weeks (Follow up with Dr. Zimmer, PCP in one to two weeks. Please call office to schedule appointment. ) Time spent managing pt's care (in minutes): 55
== END 2018-05-11 10:57 | disposition home or self-care (01) ==
LOC: ER 11:18 → INTOOBSV 16:05 → ERHOLD 16:05 → 4TH 16:47
PROVIDERS: ADMIT Family Medicine; ATTEND Family Medicine
DX: I11.0 Hypertensive heart disease with heart failure (principal); I50.21 Acute systolic (congestive) heart failure; R00.0 Tachycardia, unspecified; E87.6 Hypokalemia; E83.42 Hypomagnesemia; Z88.2 Allergy status to sulfonamides; Z85.3 Personal history of malignant neoplasm of breast
CPT/HCPCS: 36415; 71045; 71046; 71275; 80048; 80076; 81003; 82550; 82553; 83690; 83735; 83880; 84439; 84443; 84484; 85025; 85379; 85610; 85730; 87040; 87077; 87086; 87088; 87186; 93005; 93306; 93970; 96365; 96375; 99285; G0378; J0696; J1650; J1940; Q9967